=== PATIENT | female | born 1990 | race Caucasian/White ===

== ENCOUNTER 2016-08-10 01:57 | Emergency (ER) | payer OTHER ==
[2016-08-10 02:42] VITALS: BP 126/73; PULSE 75; TEMP 98.3; BMI 39.0
--- NOTE | 2016-08-10 03:31 | PDOC ---
History of Present Illness - General Chief Complaint: Ear Problem Stated Complaint: SORE THROAT/EARACHE/COUGH Time Seen by Provider: 08/10/16 02:32 History Source: Patient Exam Limitations: No Limitations - History of Present Illness Initial Comments: 08/10/16 03:52 25-year-old female with a history of asthma presents to the emergency department complaining of a sore throat without fever, chills, nausea/vomiting, headaches, neck pains, difficulty swallowing/eating, chest pain, shortness of breath, abdominal pains, urinary symptoms or extremity numbness or tingling sensation. Patient states she noticed that she is losing her voice since yesterday. Past History - Past Medical History Allergies/Adverse Reactions: Allergies Allergy/AdvReac Type Severity Reaction Status Date / Time No Known Allergies Allergy Verified 08/10/16 02:33 Home Medications: Ambulatory Orders Albuterol Sulfate Inhaler - [Ventolin Hfa Inhaler -] 1 puff IH BID PRN 08/10/16 Asthma: Yes (PATIENT DOES NOT RECALL LAST ATTACK) Cancer: No Cardiac Disorders: No Diabetes: No HTN: No Seizures: No Thyroid Disease: No - Reproductive History (#): 2 Para: 1 Therapeutic (s) & number: No Spontaneous : 0 - Immunization History Immunization Up to Date: No - Psycho/Social/Smoking Cessation Hx Anxiety: No Suicidal Ideation: No Smoking Status: No Smoking History: Never smoked Have you smoked in the past 12 months: No Number of Cigarettes Smoked Daily: 0 Information on smoking cessation initiated: No Hx Alcohol Use: No Drug/Substance Use Hx: No Substance Use Type: None Hx Substance Use Treatment: No Review of Systems - Review of Systems Able to Perform ROS?: Yes Comments:: 08/10/16 03:53 CONSTITUTIONAL: Absent: fever, chills, diaphoresis, generalized weakness, malaise, loss of appetite HEENT: +throat pain Absent: rhinorrhea, nasal congestion, throat swelling, difficulty swallowing, mouth swelling, ear pain, eye pain, visual Changes CARDIOVASCULAR: Absent: chest pain, loss of consciousness, palpitations, irregular heart rate, peripheral edema RESPIRATORY: Absent: cough, shortness of breath, dyspnea with exertion, orthopnea, wheezing, stridor, hemoptysis GASTROINTESTINAL: Absent: abdominal pain, abdominal distension, nausea, vomiting, diarrhea, constipation, melena, hematochezia GENITOURINARY: Absent: dysuria, frequency, urgency, hesitancy, hematuria, flank pain, genital pain MUSCULOSKELETAL: Absent: myalgia, arthralgia, joint swelling SKIN: Absent: rash, itching, pallor HEMATOLOGIC/IMMUNOLOGIC: Absent: easy bleeding, easy bruising, lymphadenopathy, frequent infections ENDOCRINE: Absent: unexplained weight gain, unexplained weight loss, heat intolerance, cold intolerance NEUROLOGIC: Absent: headache, focal weakness or paresthesias, dizziness, unsteady gait, seizure, mental status changes, bladder or bowel incontinence PSYCHIATRIC: Absent: anxiety, depression, suicidal or homicidal ideation, hallucinations. Is the patient limited Djiboutian proficient: No *Physical Exam - Vital Signs Last Vital Signs Temp Pulse Resp BP Pulse Ox 98.3 F 75 19 126/73 100 08/10/16 02:27 08/10/16 02:27 08/10/16 02:27 08/10/16 02:27 08/10/16 02:27 - Physical Exam Comments: 08/10/16 03:54 GENERAL: Well developed, well nourished. Awake and alert. No acute distress. HEENT: Normocephalic, atraumatic. PERRLA, EOMI. No conjunctival pallor. Sclera are non- icteric. Moist mucous membranes. Oropharynx is clear. NECK: Supple. Full ROM. No JVD. Carotid pulses 2+ and symmetric, without bruits. No thyromegaly. No lymphadenopathy. CARDIOVASCULAR: Regular rate and rhythm. No murmurs, rubs, or gallops. Distal pulses are 2+ and symmetric. PULMONARY: No evidence of respiratory distress. Lungs clear to auscultation bilaterally. No wheezing, rales or rhonchi. ABDOMINAL: Soft. Non-tender. Non-distended. No rebound or guarding. No organomegaly. Normoactive bowel sounds. MUSCULOSKELETAL Normal range of motion at all joints. No bony deformities or tenderness. No CVA tenderness. EXTREMITIES: No cyanosis. No clubbing. No edema. No calf tenderness. SKIN: Warm and dry. Normal capillary refill. No rashes. No jaundice. NEUROLOGICAL: Alert, awake, appropriate. Cranial nerves 2-12 intact. No deficits to light touch and temperature in face, upper extremities and lower extremities. No motor deficits in the in face, upper extremities and lower extremities. Normoreflexic in the upper and lower extremities. Normal speech. Toes are down- going bilaterally. Gait is normal without ataxia. PSYCHIATRIC: Cooperative. Good eye contact. Appropriate mood and affect. *DC/Admit/Observation/Transfer Diagnosis at time of Disposition: Laryngitis Pharyngitis Qualifiers: Pharyngitis/tonsillitis etiology: unspecified etiology Qualified Code(s): J02.9 - Acute pharyngitis, unspecified - Discharge Dispostion Disposition: ELOPED Condition at time of disposition: Fair
== END 2016-08-10 04:56 | disposition home or self-care (01) ==
LOC: JER 01:57 → SUPCPDRO 01:57 → JER 04:56
DX: J04.0 Acute laryngitis (principal); J02.9 Acute pharyngitis, unspecified
CPT/HCPCS: 87070; 87430; 99281-25

== ENCOUNTER 2019-02-22 06:04 | Inpatient (IN) | payer OTHER ==
[2019-02-16 13:08] VITALS: BMI 42.0
[~2019-02-22 06:04] MED LIST: BUPIVACAINE HCL/PF 0.25% (2.5MG/ML) 10 ML VIAL IJ ONE
[2019-02-22] MEDS ORDERED: BUPIVACAINE HCL/PF 2.5 MG/ML - 30 ML VIAL IJ ONE (07:08)
[2019-02-22] MEDS ORDERED: MIDAZOLAM HCL 2 MG/2 ML SINGLE DOSE VIAL ONE ×3 (07:08→07:11)
[2019-02-22] MEDS ORDERED: BUPIVACAINE LIPOSOME/PF (EXPAREL) 266 MG/20 ML VIAL ONE (07:08)
[2019-02-22] MEDS ORDERED: PROPOFOL 20 ML ONE ×2 (07:10)
[2019-02-22] MEDS ORDERED: DEXAMETHASONE SOD PHOSPHATE 4 MG/1 ML VIAL ONE (07:10)
[2019-02-22] MEDS ORDERED: fentaNYL CITRATE 250 MCG/5 ML VIAL ONE (07:10)
[2019-02-22] MEDS ORDERED: SODIUM CHLORIDE 0.9% P/F 10 ML VIAL IJ ONE (07:10)
[2019-02-22] MEDS ORDERED: ONDANSETRON 4 MG/2 ML VIAL ONE ×2 (07:10→10:30)
[2019-02-22] MEDS ORDERED: ceFAZolin SODIUM 1 GM VIAL ONE (07:10)
[2019-02-22] MEDS ORDERED: ROCURONIUM BROMIDE 50 MG/5 ML SYRINGE ONE (07:11)
[2019-02-22] MEDS ORDERED: EPHEDRINE SULFATE/0.9% NACL/PF 50 MG/10 ML SYRINGE NR ONE (07:11)
[2019-02-22] MEDS ORDERED: SUCCINYLCHOLINE CHLORIDE 200 MG/10 ML SYRINGE ONE (07:11)
[2019-02-22] MEDS ORDERED: ACETAMINOPHEN INJECTION 100 ML IVPB ONE ×2 (07:21→09:17)
[2019-02-22] MEDS ORDERED: SCOPOLAMINE HYDROBROMIDE 1 PATCH PATCH.TD72 ONE (07:21)
[2019-02-22] MEDS ORDERED: ALBUTEROL SO4 8 GM HFA INHALER IH PRN (07:34)
--- NOTE | 2019-02-22 07:34 | HP ---
Admitting History and Physical - Admission Chief Complaint: Morbid obesity History Source: Patient Limitations to Obtaining History: No Limitations - Past Medical History Pulmonary: Yes: Asthma ...LMP: 02/02/19 - Past Surgical History Past Surgical History: Yes: Additional Past Surgical History: ORIF right femur - Smoking History Smoking history: Never smoked Have you smoked in the past 12 months: No Aproximately how many cigarettes per day: 0 - Alcohol/Substance Use Hx Alcohol Use: No - Social History ADL: Independent Home Medications - Allergies Allergies/Adverse Reactions: Allergies Allergy/AdvReac Type Severity Reaction Status Date / Time No Known Allergies Allergy Verified 08/10/16 02:33 - Home Medications Home Medications: Ambulatory Orders Albuterol Sulfate Inhaler - [Ventolin Hfa Inhaler -] 1 puff IH BID PRN 08/10/16 Family Medical History Family History: Unremarkable Review of Systems - Review of Systems Constitutional: denies: Chills, Fever Neck: reports: No Symptoms Cardiovascular: reports: No Symptoms Respiratory: reports: No Symptoms Gastrointestinal: reports: No Symptoms Neurological: reports: No Symptoms Pain Intensity: 0 Physical Examination Vital Signs: Vital Signs Temperature 98.2 F 02/22/19 06:32 Pulse Rate 90 02/22/19 06:32 Respiratory Rate 18 02/22/19 06:32 Blood Pressure 111/78 02/22/19 06:32 O2 Sat by Pulse Oximetry (%) Constitutional: Yes: No Distress Neck: Yes: WNL Cardiovascular: Yes: WNL Respiratory: Yes: Regular Gastrointestinal: Yes: Soft, Abdomen, Obese Neurological: Yes: Alert, Oriented Problem List - Problems (1) Morbid obesity due to excess calories Code(s): E66.01 - MORBID (SEVERE) OBESITY DUE TO EXCESS CALORIES (2) BMI 40.0-44.9, adult Code(s): Z68.41 - BODY MASS INDEX (BMI) 40.0-44.9, ADULT Assessment/Plan Laparoscopic possible open vertical sleeve gastrectomy possible liver biopsy, upper endoscopy
[2019-02-22] MEDS ORDERED: BUPIVACAINE HCL 0.25% 125 MG/50 ML VIAL ONE (07:37)
[2019-02-22] MEDS ORDERED: HYDROmorphone HCL/PF 1 MG/ML AMP ONE (08:35)
[2019-02-22] MEDS ORDERED: NEOSTIGMINE METHYLSULFATE 0.5 MG/ML - 10 ML MDV ONE (08:43)
[2019-02-22] MEDS ORDERED: GLYCOPYRROLATE 0.2 MG/1 ML VIAL ONE (08:44)
[2019-02-22] MEDS ORDERED: BUPIVACAINE HCL/PF 0.25% (2.5MG/ML) 10 ML VIAL IJ ONE (09:07)
[2019-02-22] MEDS ORDERED: HYDROmorphone HCL CARPU-JECT 1 MG/1 ML DISP.SYRIN IVPB PRN (09:16)
[2019-02-22] MEDS ORDERED: FAMOTIDINE 20 MG/50 ML IVPB 20 MG/50 ML MG IVPB ONE (09:17)
--- NOTE | 2019-02-22 09:19 | OP ---
Operative Note - Note: Operative Date: 02/22/19 Pre-Operative Diagnosis: Morbid obesity. BMI 42 Operation: Diagnostic laparoscopy. Laparoscopic vertical sleeve gastrectomy. laparoscopic wedge liver biopsy. Laparoscopic oversewing of gastric staple line Post-Operative Diagnosis: Same as Pre-op (as well as hepatomegaly and oozing from gastric staple line) Surgeon: Pako Long Voice Over Announcer: Merrick Banks Anesthesia: General Specimens Removed: Greater curvature of stomach. Liver biopsy Estimated Blood Loss (mls): 30 Drains & Tubes with Location: 36 Fr Bougie Operative Report Dictated: Yes
[2019-02-22] MEDS ORDERED: ONDANSETRON 4 MG/2 ML VIAL IVPUSH PRN (09:29)
[2019-02-22] MEDS ORDERED: HYDROmorphone HCL CARPU-JECT 1 MG/1 ML DISP.SYRIN IVPUSH PRN (09:29)
[2019-02-22] MEDS ORDERED: LACTATED RINGERS SOLUTION 1,000 ML IV SCH (09:30)
[2019-02-22] MEDS ORDERED: ACETAMINOPHEN 1000 MG/100 ML VIAL (NON FORMULARY) IVPB SCH (09:30)
[2019-02-22] MEDS: HYDROmorphone HCL CARPU-JECT 1 MG/1 ML DISP.SYRIN IVPUSH PRN ×4 (09:30→20:28)
[2019-02-22] MEDS ORDERED: SODIUM CHLORIDE 1,000 ML IV SCH (09:30)
[2019-02-22] MEDS ORDERED: HYDROmorphone HCl 2 MG/ML VIAL ONE (09:31)
[2019-02-22] MEDS ORDERED: FAMOTIDINE 20 MG PREMIXED IVPB IVPB ONE (09:50)
[2019-02-22] MEDS: METOCLOPRAMIDE HCL INJECTION 10 MG/2 ML VIAL IVPUSH SCH ×3 (10:00→21:24)
[2019-02-22] MEDS ORDERED: METOCLOPRAMIDE HCL INJECTION 10 MG/2 ML VIAL ONE (10:07)
[2019-02-22 10:13] LABS: HEMATOCRIT 38.7 % (32.4-45.2); HEMOGLOBIN 12.5 GM/dl (10.7-15.3); MCH 29.1 pg (25.7-33.7); MCHC 32.3 g/dl (32.0-36.0); MEAN CELL VOLUME 90.1 fl (80-96); MEAN PLT VOLUME 9.3 fl (7.5-11.1); PLATELET COUNT 313 K/MM3 (134-434); RDW 12.5 % (11.6-15.6); WHITE BLOOD COUNT 15.1 K/mm3 (4.0-10.8)
[2019-02-22] MEDS: ONDANSETRON 4 MG/2 ML VIAL IVPUSH SCH ×3 (10:20→21:24)
--- NOTE | 2019-02-22 10:28 | SPEC ---
DATE OF OPERATION: 02/22/2019 PLACE OF SERVICE: [facility], [address] [place] [address] SURGEON: Pako Long MD STUDIO OPERATIONS ENGINEER IN CHARGE: Merrick Banks MD PREOPERATIVE DIAGNOSES: 1. Morbid obesity. 2. Body mass index of 42.0. 3. Asthma. POSTOPERATIVE DIAGNOSES: 1. Morbid obesity. 2. Body mass index of 42.0. 3. Asthma. 4. Hepatomegaly. 5. Oozing from gastric staple line. PROCEDURE: Diagnostic laparoscopy, laparoscopic vertical sleeve gastrectomy, laparoscopic wedge liver biopsy, and laparoscopic over sewing of gastric staple line. SPECIMENS: 1. Greater curvature of the stomach. 2. Liver biopsy. ESTIMATED BLOOD LOSS: 30 mL. DRAIN: None. ANESTHESIA: GET. BOUGIE SIZE: 36-Vincentian. REASON FOR PROCEDURE: This is a 28-year-old female who presents to the office for weight loss options. After describing different options, she decided to proceed with a laparoscopic, possible open, vertical sleeve gastrectomy, possible liver biopsy, possible upper endoscopy. The patient was seen by the respective subspecialties and cleared for surgery. The risks and benefits of the procedure were explained. These included bleeding, infection, hernia, DE, DVT, PE, injury to surrounding structures including the liver, colon, bowel, spleen, esophagus, vessel injury, nerve injury, weight regain, gastric leak, staple line leak, sleeve leak, obstruction, vitamin deficiency, hair loss and as some of the possible complications. The patient understood and signed informed consent. DESCRIPTION OF PROCEDURE: The patient was placed supine on the operating room table. The patient underwent general endotracheal intubation. The arms were brought out at 90 degrees and secured. A footboard was placed and the legs were secured laterally with padding. The abdomen was prepped and draped in the usual sterile fashion. A timeout was performed. An incision was made in the left upper quadrant and a Veress needle inserted. Pneumoperitoneum was established. Subsequently, the Veress needle was removed and a 5-mm trocar was placed under direct visualization with the laparoscope. The laparoscopic camera was then inserted and inspection of the abdominal cavity was performed. An incision was then made in the supraumbilical area and a 15-mm trocar was placed under direct visualization. A 5-mm trocar was then placed in the right upper quadrant and a 5-mm trocar was placed below the left subcostal margin. A stab wound was made in the subxiphoid area and a Tiana clamp inserted and removed to dilate the tract. A Milton liver retractor was inserted. The post was secured at the bedside by the nursing staff. The patient was placed in steep reverse Trendelenburg position and the Milton liver retractor was used to secure the liver towards the anterior abdominal wall. The pylorus was identified and 6 cm proximal to it, the lesser sac was entered using the LigaSure device. All lateral attachments to the greater curvature of the stomach, including the short gastric vessels, were ligated using the LigaSure device toward the gastrosplenic and gastrophrenic ligaments. Once this was done in its entirety, it was confirmed that all tubes within the nasal or oropharyngeal cavity, including a temperature probe were removed by Anesthesia. The bougie was then inserted by Anesthesia. Transection of the stomach was then begun staying adjacent to the bougie but away from the angularis. Transection of the stomach was performed near the portion of the stomach where the lesser sac was entered. Two laparoscopic Endo-MAKENZIE black alok were used at this location. Laparoscopic Endo MAKENZIE purple staple loads were then used for the remainder of the transection until the greater curvature of the stomach was fully transected. This was done staying close to the bougie. Care was taken to stay away from the angle of His cephalad. The staple line was then inspected. Hemostasis was identified. A leak test was then performed. It was clamped distally to the staple line. Irrigation solution was placed in the left upper quadrant and air was insufflated by Anesthesia into the sleeve. No leaks were identified. No obstruction was identified. This was done through the entirety of the staple line. The stomach was suctioned and the bougie removed fully intact under direct visualization. At this point, the irrigation solution was suctioned and again, hemostasis was noted. A wedge liver biopsy was then performed. The left lobe of the liver was identified. A portion of the edge of the left lobe of the liver was grasped. Using electrocautery, a wedge of the left liver was excised. The specimen was removed and sent off the field. Hemostasis of the wedge liver biopsy site was attained and noted using electrocautery. The 15-mm supraumbilical trocar was then removed and the greater curvature specimen removed from the site using a sponge stick ceballos. A Quentin-Valentín device was then used to close the fascia with a 0 Vicryl suture at the site. Again, hemostasis was noted. Due to oozing at the staple line at 2 areas, the stomach was over sewn at the gastric sleeve staple line using Endo Stitch device with a 2-0 Ethibond suture. Oozing was noted to be controlled with this. The Milton liver retractor was then removed under direct visualization. Pneumoperitoneum was desufflated. Hemostasis was noted at all incision sites and Marcaine was injected at all incision sites. A 3-0 Vicryl suture was used to close the deep subcutaneous tissue at the 15-mm incision site. All incision sites were closed using 4-0 Biosyn. Sterile dressings were applied. The patient tolerated the procedure well and was transferred to the recovery room in stable condition. Chris [id number]
[2019-02-22 13:19] LABS: ALBUMIN 3.7 g/dl (3.4-5.0); BILIRUBIN,TOTAL 0.3 mg/dL (0.2-1); BLOOD UREA NITROGEN 17.7 mg/dL (7-18); CALCIUM 8.6 mg/dL (8.5-10.1); CREATININE 0.9 mg/dL (0.55-1.3); POTASSIUM 4.3 mmol/L (3.5-5.1)
[2019-02-22] MEDS: ACETAMINOPHEN 1000 MG/100 ML VIAL (NON FORMULARY) IVPB SCH (21:14)
[2019-02-22 21:22] VITALS: TEMP 98.1
[2019-02-22] MEDS: ENOXAPARIN NA (PORCINE) 40 MG/0.4 ML DISP.SYRIN SQ SCH (21:24)
[2019-02-22] MEDS: FAMOTIDINE 20 MG/50 ML IVPB 20 MG/50 ML MG IVPB SCH (21:25)
[2019-02-23] MEDS: ONDANSETRON 4 MG/2 ML VIAL IVPUSH SCH ×3 (02:35→09:19)
[2019-02-23] MEDS: ACETAMINOPHEN 1000 MG/100 ML VIAL (NON FORMULARY) IVPB SCH (03:53)
[2019-02-23] MEDS: METOCLOPRAMIDE HCL INJECTION 10 MG/2 ML VIAL IVPUSH SCH ×2 (03:54→09:19)
[2019-02-23 06:59] VITALS: BP 118/74; PULSE 70
[2019-02-23 08:54] LABS: HEMATOCRIT 34.3 % (32.4-45.2); HEMOGLOBIN 11.4 GM/dl (10.7-15.3); MCH 29.2 pg (25.7-33.7); MCHC 33.2 g/dl (32.0-36.0); MEAN CELL VOLUME 88.1 fl (80-96); MEAN PLT VOLUME 9.5 fl (7.5-11.1); PLATELET COUNT 294 K/MM3 (134-434); RBC 3.89 M/mm3 (3.60-5.2); RDW 12.9 % (11.6-15.6); WHITE BLOOD COUNT 12.8 K/mm3 (4.0-10.8)
--- NOTE | 2019-02-23 08:59 | PN ---
Progress Note (short form) - Note Progress Note: POD1 s/p lap gastric sleeve. Pain is better controlled today, is comfortable now with pain meds. No N/V, able to ambulate and use bathroom. No anesthetic issues/complications noted.
[2019-02-23 09:12] LABS: ALBUMIN 3.6 g/dl (3.4-5.0); BILIRUBIN,TOTAL 0.5 mg/dl (0.2-1); CALCIUM 8.8 mg/dl (8.5-10); CREATININE 0.9 mg/dl (0.55-1.3); POTASSIUM 4.3 mmol/L (3.5-5.1); TOT PROT 6.6 g/dl (6.4-8.2)
[2019-02-23] MEDS: FAMOTIDINE 20 MG/50 ML IVPB 20 MG/50 ML MG IVPB SCH (09:18)
--- NOTE | 2019-02-23 11:03 | DS ---
Physical Exam: SUBJECTIVE: Patient seen and examined this am, she had some emesis(size of 8 oz cup) yesterday with blood tinged and bile. No CP/SOB. Slight nausea this am. Voiding and ambulating without difficulty. OBJECTIVE: Vital Signs Temperature 98.1 F 02/22/19 18:00 Pulse Rate 70 02/23/19 06:00 Respiratory Rate 18 02/23/19 06:00 Blood Pressure 118/74 02/23/19 06:00 O2 Sat by Pulse Oximetry (%) 98 02/22/19 21:00 PHYSICAL EXAM GENERAL: The patient is awake, alert, and fully oriented, in no acute distress. HEAD: Normal with no signs of trauma. LUNGS: Breath sounds equal, clear to auscultation bilaterally. HEART: Regular rate and rhythm. ABDOMEN: Soft, non-distended, inc c/d/i with bandaids. EXTREMITIES: No edema, no calf tenderness b/l. SCDs in place. LABS CBC,CMP WBC 12.8 K/mm3 (4.0-10.8) H 02/23/19 08:18 RBC 3.89 M/mm3 (3.60-5.2) 02/23/19 08:18 Hgb 11.4 GM/dl (10.7-15.3) 02/23/19 08:18 Hct 34.3 % (32.4-45.2) 02/23/19 08:18 MCV 88.1 fl (80-96) 02/23/19 08:18 MCH 29.2 pg (25.7-33.7) 02/23/19 08:18 MCHC 33.2 g/dl (32.0-36.0) 02/23/19 08:18 RDW 12.9 % (11.6-15.6) 02/23/19 08:18 Plt Count 294 K/MM3 (134-434) 02/23/19 08:18 MPV 9.5 fl (7.5-11.1) 02/23/19 08:18 Sodium 136 mmol/L (136-145) 02/23/19 08:18 Potassium 4.3 mmol/L (3.5-5.1) 02/23/19 08:18 Chloride 106 mmol/L (98-107) 02/23/19 08:18 Carbon Dioxide 25 mmol/L (21-32) 02/23/19 08:18 Anion Gap 5 MMOL/L (8-16) L 02/23/19 08:18 BUN 12.0 mg/dl (7-18) 02/23/19 08:18 Creatinine 0.9 mg/dl (0.55-1.3) 02/23/19 08:18 Est GFR (CKD-EPI)AfAm 102.28 02/23/19 08:18 Est GFR (CKD-EPI)NonAf 88.25 02/23/19 08:18 Random Glucose 91 mg/dl (74-106) 02/23/19 08:18 Calcium 8.8 mg/dl (8.5-10) 02/23/19 08:18 Total Bilirubin 0.5 mg/dl (0.2-1) 02/23/19 08:18 AST 26 U/L (15-37) 02/23/19 08:18 ALT 30 U/L (13-61) 02/23/19 08:18 Alkaline Phosphatase 67 U/L (45-117) 02/23/19 08:18 Total Protein 6.6 g/dl (6.4-8.2) 02/23/19 08:18 Albumin 3.6 g/dl (3.4-5.0) 02/23/19 08:18 HOSPITAL COURSE: HOSPITAL COURSE: The patient was admitted to the Med-Surg Unit after elective bariatric surgery. Now, s/p laparoscopic vertical sleeve gastrectomy. The day of surgery, the patient ambulated the hallways with assistance. The patient was monitored with remote tele/continuous pulse ox. Narcotic and non-narcotic pain management control was achieved with oral and IV pain control. Upper GI series was obtained the following morning and no leak, extravastion or gastric outlet obstruction. Started on a Bariatric Stage 1 diet and tolerated well. Bessie-operative IV ABX were administered in addition to GI prophylaxis. DVT prophylaxis was achieved with SCDs and early ambulation. The discharge instructions and an oral pain management plan were reviewed with the patient. All questions answered. Above plan discussed with Dr. Long and agreed. Date of Admission:02/22/19 Date of Discharge: 02/23/19 Minutes to complete discharge: 20
[2019-02-23] MEDS: ENOXAPARIN NA (PORCINE) 40 MG/0.4 ML DISP.SYRIN SQ SCH (11:19)
--- NOTE | 2019-02-23 11:53 | PN ---
Progress Note (short form) - Note Progress Note: POD 1 No acute events reported Vital Signs Period Temp Pulse Resp BP Sys/Sarmiento Pulse Ox Last 24 Hr 97.7 F-98.1 F 70-88 16-18 118-130/69-75 98-98 CBC,CMP WBC 12.8 K/mm3 (4.0-10.8) H 02/23/19 08:18 RBC 3.89 M/mm3 (3.60-5.2) 02/23/19 08:18 Hgb 11.4 GM/dl (10.7-15.3) 02/23/19 08:18 Hct 34.3 % (32.4-45.2) 02/23/19 08:18 MCV 88.1 fl (80-96) 02/23/19 08:18 MCH 29.2 pg (25.7-33.7) 02/23/19 08:18 MCHC 33.2 g/dl (32.0-36.0) 02/23/19 08:18 RDW 12.9 % (11.6-15.6) 02/23/19 08:18 Plt Count 294 K/MM3 (134-434) 02/23/19 08:18 MPV 9.5 fl (7.5-11.1) 02/23/19 08:18 Sodium 136 mmol/L (136-145) 02/23/19 08:18 Potassium 4.3 mmol/L (3.5-5.1) 02/23/19 08:18 Chloride 106 mmol/L (98-107) 02/23/19 08:18 Carbon Dioxide 25 mmol/L (21-32) 02/23/19 08:18 Anion Gap 5 MMOL/L (8-16) L 02/23/19 08:18 BUN 12.0 mg/dl (7-18) 02/23/19 08:18 Creatinine 0.9 mg/dl (0.55-1.3) 02/23/19 08:18 Est GFR (CKD-EPI)AfAm 102.28 02/23/19 08:18 Est GFR (CKD-EPI)NonAf 88.25 02/23/19 08:18 Random Glucose 91 mg/dl (74-106) 02/23/19 08:18 Calcium 8.8 mg/dl (8.5-10) 02/23/19 08:18 Total Bilirubin 0.5 mg/dl (0.2-1) 02/23/19 08:18 AST 26 U/L (15-37) 02/23/19 08:18 ALT 30 U/L (13-61) 02/23/19 08:18 Alkaline Phosphatase 67 U/L (45-117) 02/23/19 08:18 Total Protein 6.6 g/dl (6.4-8.2) 02/23/19 08:18 Albumin 3.6 g/dl (3.4-5.0) 02/23/19 08:18 UGI: no leak/obstruction Clears Discharge home Problem List - Problems (1) Morbid obesity due to excess calories Code(s): E66.01 - MORBID (SEVERE) OBESITY DUE TO EXCESS CALORIES (2) BMI 40.0-44.9, adult Code(s): Z68.41 - BODY MASS INDEX (BMI) 40.0-44.9, ADULT
--- NOTE | 2019-03-01 18:01 | PATH ---
Surgical Pathology Report Patient Name: BLAINE DE GUZMAN Med. Rec. #: [id number] /Age/Gender: 1990 (Age: 28) / F Account: [id number] Location: [facility] Taken: 02/22/2019 Received: 02/22/2019 Reported: 03/01/2019 Physicians: Pako Long M.D. Specimen(s) Received A: GREATER CURVATURE STOMACH B: LIVER BIOPSY Clinical History Morbid obesity Final Diagnosis A. GREATER CURVATURE STOMACH, LAPAROSCOPIC VERTICAL SLEEVE GASTRECTOMY: SEGMENT OF STOMACH SHOWING CHRONIC GASTRITIS. IMMUNOSTAINING IS NEGATIVE FOR H. PYLORI ORGANISMS. NEGATIVE FOR INTESTINAL METAPLASIA. B. LIVER, BIOPSY: LIVER TISSUE WITH FOCAL MILD STEATOSIS (<5%). NO HISTOLOGIC EVIDENCE OF HEPATITIS. NO INCREASE IN FIBROSIS (TRICHROME STAIN) OR IRON (IRON STAIN) DEPOSITION. Electronically Signed Gregorio Parsons M.D. Gross Description A. Received in formalin, labeled "greater curvature of stomach," is a 52 gram, 16.0 x 2.5 x 1.8 cm. portion of stomach with a stapled margin of resection. The serosa is patel-grady with minimal attached fat. The mucosa is patel-pink with normal folds. No mucosal masses are identified. Plasterer Journeyman sections are submitted in one cassette. B. Received in formalin labeled "liver biopsy," is a 1.2 x 0.7 x 0.3 cm patel portion of soft tissue, consistent with a portion of liver. The specimen is submitted in toto in one cassette. 02/24/2019 saudi02/24/2019
== END 2019-02-23 11:56 | disposition home or self-care (01) | DRG 403 ==
LOC: FM/S 06:04
PROVIDERS: ADMIT Surgery; ATTEND Surgery
PROC: 0DB64Z3 Excision of Stomach, Percutaneous Endoscopic Approach, Vertical (ICD-10-PCS; principal; 2019-02-22 08:25)
PROC: 0FB24ZX Excision of Left Lobe Liver, Percutaneous Endoscopic Approach, Diagnostic (ICD-10-PCS; 2019-02-22 08:25)
DX: E66.01 Morbid (severe) obesity due to excess calories (principal); Z68.42 Body mass index [BMI] 45.0-49.9, adult; R16.0 Hepatomegaly, not elsewhere classified; J45.909 Unspecified asthma, uncomplicated
CPT/HCPCS: 36415; 74241-TC-FY; 80053; 84703; 85027; 87389; 88305-TC; 94760; J0131; J7030; Q9967

== ENCOUNTER 2022-02-19 17:01 | Emergency (ER) | payer OTHER ==
[2022-02-19 17:28] VITALS: BP 116/70; PULSE 94; RESP 18; TEMP 98.6; BMI 32.9
[2022-02-19] MEDS ORDERED: ACETAMINOPHEN 1000 MG/100 ML BAG IVPB ONE (17:48)
[2022-02-19] MEDS ORDERED: SODIUM CHLORIDE 1,000 ML IV STA (17:48)
[2022-02-19] MEDS ORDERED: ONDANSETRON 4 MG/2 ML VIAL IVPUSH ONE (17:48)
[2022-02-19] MEDS ORDERED: KETOROLAC TROMETHAMINE 30 MG/1 ML VIAL IVPUSH ONE (18:51)
[2022-02-19] MEDS ORDERED: KETOROLAC TROMETHAMINE 30 MG/1 ML VIAL ONE (18:52)
== END 2022-02-19 19:47 | disposition home or self-care (01) ==
LOC: JER 17:01
PROC: 3E0333Z Introduction of Anti-inflammatory into Peripheral Vein, Percutaneous Approach (ICD-10-PCS; principal; 2022-02-19)
PROC: 3E0333Z Introduction of Anti-inflammatory into Peripheral Vein, Percutaneous Approach (ICD-10-PCS; 2022-02-19)
PROC: 3E033GC Introduction of Other Therapeutic Substance into Peripheral Vein, Percutaneous Approach (ICD-10-PCS; 2022-02-19)
PROC: 3E0337Z Introduction of Electrolytic and Water Balance Substance into Peripheral Vein, Percutaneous Approach (ICD-10-PCS; 2022-02-19)
DX: J09.X2 Influenza due to identified novel influenza A virus with other respiratory manifestations (principal); R11.0 Nausea
CPT/HCPCS: 0241U-QW; 99284-25

== ENCOUNTER 2023-06-24 08:15 | Inpatient (IN) | payer OTHER ==
[2023-06-24] MEDS: ELECTROLYTE-148 SOLN 500 ML IV ONE (08:45)
[2023-06-24] MEDS: ELECTROLYTE-148 SOLN 1,000 ML IV SCH (09:15)
[2023-06-24] MEDS: CITRIC ACID/SODIUM CITRATE 30 ML UNIT-DOSE CUP PO ONE (09:30)
[2023-06-24 09:41] VITALS: BMI 33.9
[2023-06-24] MEDS ORDERED: morphine SULFATE/PF 1 MG/2 ML (2cc Syringe - QUVA) ONE (10:36)
[2023-06-24] MEDS ORDERED: KETOROLAC TROMETHAMINE 30 MG/1 ML VIAL ONE (10:36)
[2023-06-24] MEDS ORDERED: OXYTOCIN 10 UNITS/ML VIAL ONE ×2 (10:36→12:13)
[2023-06-24] MEDS ORDERED: ONDANSETRON 4 MG/2 ML VIAL ONE (10:36)
[2023-06-24] MEDS ORDERED: FENTANYL CITRATE/PF 50 MCG/ML VIAL ONE (10:36)
[2023-06-24] MEDS ORDERED: DEXAMETHASONE SOD PHOSPHATE 4 MG/1 ML VIAL ONE (10:37)
[2023-06-24] MEDS ORDERED: ceFAZolin SODIUM 1 GM VIAL ONE (10:37)
[2023-06-24 12:27] LABS: CORD HCO3 23.9 mmHg (20-29); CORD PCO2 49.3 mmHg (30-78); CORD pH 7.303 (7.14-7.44)
[2023-06-24 12:31] LABS: CORD HCO3 24.6 mmHg (20-29); CORD PCO2 59.8 mmHg (30-78); CORD pH 7.232 (7.14-7.44)
[2023-06-24] MEDS ORDERED: METHYLERGONOVINE MALEATE 0.2 MG/1 ML AMP IM PRN (12:48)
[2023-06-24] MEDS ORDERED: ONDANSETRON 4 MG/2 ML VIAL IVPUSH PRN (13:04)
[2023-06-24] MEDS ORDERED: IBUPROFEN 800 MG/8 ML IJ IVPB ONE (14:20)
[2023-06-24] MEDS: IBUPROFEN 800 MG/8 ML IJ IVPB PRN (14:25)
[2023-06-24] MEDS ORDERED: OXYTOCIN 20 UNITS in 0.9% NS 20 UNIT/1,000 ML INFUS.BAG IV ONE (14:50)
[2023-06-24] MEDS: OXYTOCIN 20 UNITS in 0.9% NS 20 UNIT/1,000 ML INFUS.BAG IV SCH (15:00)
[2023-06-24] MEDS: CEFAZOLIN 1 GM in DEXTROSE 5%-WATER 100 ML IVPB SCH (18:00)
[2023-06-24] MEDS: SIMETHICONE 80 MG TAB.CHEW (FP) PO PRN (20:04)
[2023-06-24] MEDS: ACETAMINOPHEN 325 MG TABLET (FP) PO PRN (20:04)
[2023-06-25 06:46] LABS: BASO % 0.2 % (0-2.0); EOS % 0.3 % (0-4.5); HEMATOCRIT 25.3 % (32.4-45.2); HEMOGLOBIN 8.7 GM/dL (10.7-15.3); LYMPH % 14.6 % (8-40); MCH 32.7 pg (25.7-33.7); MCHC 34.5 g/dl (32.0-36.0); MEAN PLT VOLUME 9.2 fl (7.5-11.1); MONO % 4.8 % (3.8-10.2); NEUT % 80.1 % (42.8-82.8); PLATELET COUNT 152 10^3/uL (134-434); RBC 2.67 M/mm3 (3.60-5.2); WHITE BLOOD COUNT 11.7 K/mm3 (4.0-10.0)
[2023-06-25] MEDS: IBUPROFEN 600 MG TABLET (FP) PO PRN (09:19)
[2023-06-25] MEDS: ENOXAPARIN NA (PORCINE) 40 MG/0.4 ML DISP.SYRIN SQ SCH (09:25)
[2023-06-25] MEDS: FERROUS SO4 325 MG TABLET (FP) PO SCH (10:31)
[2023-06-25 10:39] LABS: HEMATOCRIT 26.7 % (32.4-45.2); HEMOGLOBIN 9.2 GM/dL (10.7-15.3); MCH 32.7 pg (25.7-33.7); MCHC 34.5 g/dl (32.0-36.0); PLATELET COUNT 163 10^3/uL (134-434); RBC 2.81 M/mm3 (3.60-5.2); RDW 13.2 % (11.6-15.6); WHITE BLOOD COUNT 11.8 K/mm3 (4.0-10.0)
[2023-06-25 10:51] LABS: POTASSIUM 3.2 mmol/L (3.5-5.1)
[2023-06-25 10:57] LABS: ALBUMIN 2.3 g/dl (3.4-5.0); BLOOD UREA NITROGEN 7.9 mg/dL (7-18); CALCIUM 8.4 mg/dL (8.5-10.1)
[2023-06-25 11:00] LABS: CREATININE 0.6 mg/dL (0.55-1.3)
[2023-06-25 11:02] LABS: BILIRUBIN,TOTAL 0.3 mg/dL (0.2-1); TOT PROT 5.1 g/dl (6.4-8.2)
[2023-06-25] MEDS ORDERED: BISACODYL 10 MG SUPP.RECT RC PRN (12:49)
[2023-06-25 13:29] LABS: BASO % 0.1 % (0-2.0); EOS % 0.6 % (0-4.5); HEMATOCRIT 27.7 % (32.4-45.2); HEMOGLOBIN 9.7 GM/dL (10.7-15.3); LYMPH % 18.9 % (8-40); MCH 33.1 pg (25.7-33.7); MCHC 34.9 g/dl (32.0-36.0); MEAN CELL VOLUME 94.7 fl (80-96); MEAN PLT VOLUME 9.3 fl (7.5-11.1); MONO % 5.5 % (3.8-10.2); NEUT % 74.9 % (42.8-82.8); PLATELET COUNT 179 10^3/uL (134-434); RBC 2.92 M/mm3 (3.60-5.2); RDW 13.4 % (11.6-15.6); WHITE BLOOD COUNT 11.6 K/mm3 (4.0-10.0)
[2023-06-25 13:31] LABS: POTASSIUM 3.5 mmol/L (3.5-5.1)
[2023-06-25 13:35] LABS: CALCIUM 8.6 mg/dL (8.5-10.1)
[2023-06-25 13:36] LABS: BLOOD UREA NITROGEN 7.4 mg/dL (7-18)
[2023-06-25 13:39] LABS: CREATININE 0.6 mg/dL (0.55-1.3)
[2023-06-25] MEDS: DOCUSATE SODIUM 100 MG CAPSULE (FP) PO PRN (21:24)
[2023-06-26] MEDS: oxyCODONE HCL 5 MG TABLET PO PRN (01:41)
[2023-06-27 06:24] LABS: BASO % 0.4 % (0-2.0); EOS % 0.9 % (0-4.5); HEMOGLOBIN 8.9 GM/dL (10.7-15.3); LYMPH % 16.7 % (8-40); MCH 32.9 pg (25.7-33.7); MCHC 34.4 g/dl (32.0-36.0); MEAN CELL VOLUME 95.4 fl (80-96); MEAN PLT VOLUME 8.1 fl (7.5-11.1); MONO % 4.2 % (3.8-10.2); NEUT % 77.8 % (42.8-82.8); PLATELET COUNT 197 10^3/uL (134-434); RBC 2.72 M/mm3 (3.60-5.2); RDW 13.3 % (11.6-15.6); WHITE BLOOD COUNT 11.2 K/mm3 (4.0-10.0)
[2023-06-27 10:43] VITALS: BP 114/78; PULSE 84; RESP 18; TEMP 98
== END 2023-06-27 14:14 | disposition home or self-care (01) | DRG 540 ==
LOC: JLDR 08:15 → J3W 15:15
PROVIDERS: ADMIT Obstetrics & Gynecology; ATTEND Obstetrics & Gynecology
PROC: 10D00Z1 Extraction of Products of Conception, Low, Open Approach (ICD-10-PCS; principal; 2023-06-24)
DX: O34.211 Maternal care for low transverse scar from previous cesarean delivery (principal); N85.8 Other specified noninflammatory disorders of uterus; O36.5930 Maternal care for other known or suspected poor fetal growth, third trimester, not applicable or unspecified; O24.420 Gestational diabetes mellitus in childbirth, diet controlled; Z3A.37 37 weeks gestation of pregnancy; Z37.0 Single live birth
CPT/HCPCS: 36415; 36600; 71045-TC-FY; 76705-TC; 80048; 80053; 82803; 85025; 85027; 85610; 85730; 86780; 86850; 86900; 86901; 86922; 88307-TC; 94010